=== PATIENT | female | born 1990 | race Caucasian/White ===

== ENCOUNTER 2021-02-11 09:51 | Emergency (ER) | payer OTHER ==
[~2021-02-11] VITALS: Ht 170.2 cm; Wt 124.7 kg
[2021-02-11] MEDS ORDERED: METHYLPREDNISOLONE SOD SUCC 125 MG/2ML VIAL IV STA (10:11)
[2021-02-11] MEDS ORDERED: SODIUM CHLORIDE 0.9% 1000ML 1,000 ML IV STA (10:11)
[2021-02-11] MEDS ORDERED: FAMOTIDINE 20 MG/2 ML VIAL IV NR (10:15)
[2021-02-11] MEDS: DIPHENHYDRAMINE HCL INJ 50 MG/ML VIAL IV NR ×2 (10:59→11:15)
[2021-02-11 13:09] VITALS: BP 115/86
== END 2021-02-11 13:15 | disposition home or self-care (01) ==
LOC: ER 10:24
DX: L50.9 Urticaria, unspecified (principal); T78.40XA Allergy, unspecified, initial encounter
CPT/HCPCS: 99282; J1200; J2930; J7030